=== PATIENT | female | born 1955 | race Caucasian/White ===

== ENCOUNTER 2016-09-25 10:31 | Emergency (ER) | payer BC ==
[2016-09-25] MEDS ORDERED: NS 1,000 ML IV ONE (10:58)
[2016-09-25 11:03] VITALS: TEMP 97
[2016-09-25] MEDS ORDERED: SUMAtriptan 6 MG/0.5 ML VIAL SC ONE (11:42)
[2016-09-25] MEDS ORDERED: KETOROLAC 30 MG/1 ML SDV IVP ONE (11:42)
--- NOTE | 2016-09-25 11:47 | UCPHY ---
H & P Patient Type: New Chief Complaint Nursing Narrative: migraine headache started 2am with n/v, unable to take po imitrex and hold down. Time Seen by Provider: 09/25/16 11:27 HPI/ROS: This patient reports onset of headache at 2:00 a.m.. She clarifies explains that she experience some neck pain that she feels musculoskeletal in origin related to mowing the lawn and swimming. She had on either of those activities several weeks and then both the day prior to the headache. She noticed a achy neck prior to going to sleep and then was awakened by this head pain that felt like his extending from the neck to the occiput. The pain is bilateral and achy in nature 8/10 intensity slightly worse with movement. She reports associated nausea and vomiting several episodes through the night. She is unable to tolerate her oral Imitrex due to the vomiting. She usually has relief of her headaches from Imitrex. She does feel that she has both musculoskeletal tension type headaches and migraines ROS: No fevers or chills. No recent head trauma. HEENT: No recent URI symptoms or sinus pain. Neuro: No numbness tingling focal weakness or vision changes. Musculoskeletal: No midline neck pain. No trauma. Pulmonary: No complaints 7 point ROS is otherwise negative. Source: Patient Exam Limitations: No limitations - Medical/Surgical History Other PMH: migraines, lumpectomy - Family History Significant Family History: No pertinent family hx - Social History Smoking Status: Never smoked Alcohol Use: Rarely Drug Use: None - Physical Exam Exam: Physical exam: Vital signs are normal General: Patient is in no acute distress. HEENT: Is no external evidence of trauma on exam. Eyes: Pupils are equal and reactive to light. Extraocular motions are intact. Optic fundi: Clear with no papilledema or hemorrhage. Nose atraumatic. Ears: Clear bilaterally with no hemotympanum. Oropharynx: No dental trauma or malocclusion. No intraoral lacerations. Eyes: Pupils are equal and reactive to light. Extraocular motions are intact. Optic fundi: Clear with no papilledema or hemorrhage.a is midline with no stridor. The patient has no midline neck tenderness and retains a full range of motion without increase in pain. Lungs: Clear to auscultation bilaterally Neck: Supple no meningismus. Cardiac: Regular rate and rhythm no murmur gallop or rub. Abdomen: Soft nontender no organomegaly Neuro: GCS of 15. Cranial nerves II through XII intact. Cerebellar exam is normal as judged by symmetric rapid hand movements bilaterally. No pronator drift. No sensory or motor deficits are appreciated. Initial differential diagnosis: Migraine, tension headache, [employer] lesion, intracranial bleed Constitutional: Initial Vital Signs Temperature (C) 36.1 C 09/25/16 10:45 Heart Rate 72 09/25/16 10:45 Respiratory Rate 18 09/25/16 10:45 Blood Pressure 118/71 09/25/16 10:45 O2 Sat (%) 99 09/25/16 10:45 O2 Delivery Mode Room Air Allergies/Adverse Reactions: Penicillins Allergy (Intermediate, Verified 09/25/16 11:00) Sulfa (Sulfonamide Antibiotics) Allergy (Intermediate, Verified 09/25/16 11:00) Home Medications: Medication Instructions Recorded Imitrex 04/17/09 Methocarbamol [Robaxin 750 mg (*)] 750 - 1,500 mg PO QID PRN #30 tab 09/25/16 Medical Decision Making ED Course/Re-evaluation: IV normal saline bolus Patient has had good luck with Imitrex and she requests this. I also treated with Toradol Patient had complete relief of her symptoms and on recheck at 12:30 p.m. feels 0 to 1/10 neck pain and no headache. We discussed musculoskeletal neck pain including stretches and mild muscle relaxant. She is going to follow up today with a headache specialist in [place]. Discussion: Findings most consistent with musculoskeletal neck pain and migraine headache improved with treatment. She understands the need to go the emergency department should she develop any red flag symptoms. - Data Points Medications Given: Discontinued Medications Sodium Chloride (Ns) 1,000 mls @ 0 mls/hr IV ONCE ONE PRN Reason: Wide Open Stop: 09/25/16 10:59 Last Admin: 09/25/16 11:10 Dose: 1,000 mls Ketorolac Tromethamine (Toradol) 30 mg IVP EDNOW ONE Stop: 09/25/16 11:43 Last Admin: 09/25/16 11:55 Dose: 30 mg Sumatriptan Succinate (Imitrex Sc Injection) 6 mg SC EDNOW ONE Stop: 09/25/16 11:43 Last Admin: 09/25/16 11:55 Dose: 6 mg Departure - Departure Disposition: Home, Routine, Self-Care Clinical Impression: Musculoskeletal neck pain Migraine Qualifiers: Migraine type: unspecified Status migrainosus presence: without status migrainosus Intractability: not intractable Qualified Code(s): G43.909 - Migraine, unspecified, not intractable, without status migrainosus Condition: Good Instructions: Migraine Headache (ED), Neck Pain (ED) Additional Instructions: Diagnoses: 1. Migraine 2. Musculoskeletal neck pain Plan: Gentle stretches of her neck Consider methocarbamol muscle relaxant and Tylenol for discomfort if needed Follow up with your headache specialist. Go to the emergency department for any significant worsening despite the treatment plan. Referrals: Lacy Riley MD [Primary Care Provider] - As per Instructions Prescriptions: Methocarbamol [Robaxin 750 mg (*)] 750 - 1,500 mg PO QID PRN #30 tab PRN Reason: Muscle Spasms - PQRS PQRS Measurement: NA
[2016-09-25 13:06] VITALS: BP 112/59; PULSE 62; RESP 16; O2SAT 97
== END 2016-09-25 12:55 | disposition home or self-care (01) ==
LOC: CED 10:31
DX: G43.909 Migraine, unspecified, not intractable, without status migrainosus (principal); M54.2 Cervicalgia
CPT/HCPCS: 96361-PO; 96374-PO; G0463-PO; J1885; J3030

== ENCOUNTER → 2016-12-29 | Outpatient (CLI) | payer BC | LOC: FIMAGING 08:19 | PROVIDERS: ATTEND Family Medicine | DX: M25.512 Pain in left shoulder (principal) ==

== ENCOUNTER 2017-01-05 09:08 | Emergency (ER) | payer BC ==
[2017-01-05 09:21] VITALS: BP 125/70; PULSE 61; RESP 18; TEMP 97.5; O2SAT 98
--- NOTE | 2017-01-05 09:36 | EDPHY ---
H & P Time Seen by Provider: 01/05/17 09:16 HPI/ROS: CHIEF COMPLAINT: Left calf burn History by patient HISTORY OF PRESENT ILLNESS: 61-year-old woman presents with burn to her left calf after backing into a chimney for [employer] 10 days ago. She has been treating the wound at home with Neosporin, aloe and honey. She is leaving tomorrow to go on vacation to [facility] for a week and wanted it checked out. She denies any fever chills. There has been no drainage or purulence. She denies any other pain or injury. Her tetanus status is up-to-date. REVIEW OF SYSTEMS: As in HPI, and all other systems reviewed and are negative Smoking Status: Never smoked Physical Exam: General Appearance: Alert and no distress. Eyes: Pupils equal and round no injection. Musculoskeletal: Neck is supple and nontender. Extremities: Left calf with 10 x 5 cm healing wound with no evidence of purulence or drainage and minimal surrounding erythema, no tenderness positive granulation tissue. Skin: No rashes or lesions except as described above. Constitutional: Initial Vital Signs Temperature (C) 36.4 C 01/05/17 09:18 Heart Rate 61 01/05/17 09:18 Respiratory Rate 18 01/05/17 09:18 Blood Pressure 125/70 H 01/05/17 09:18 O2 Sat (%) 98 01/05/17 09:18 O2 Delivery Mode Room Air Allergies/Adverse Reactions: Penicillins Allergy (Intermediate, Verified 01/05/17 09:17) Sulfa (Sulfonamide Antibiotics) Allergy (Intermediate, Verified 01/05/17 09:17) Home Medications: Medication Instructions Recorded Imitrex 04/17/09 NAPROXEN SODIUM 01/05/17 MDM/Departure - [facility] ED Course/Re-evaluation: 61-year-old woman presents with full to partial thickness burn on her left calf which is 10-day-old. There is no evidence of active infection. We discussed wound care and patient has been referred to surgery for follow-up. - Depart Clinical Impression: Burn of left lower leg Qualifiers: Encounter type: initial encounter Burn degree: partial thickness (2nd degree) Qualified Code(s): T24.232A - Burn of second degree of left lower leg, initial encounter Condition: Good Instructions: Second Degree Burn (ED) Additional Instructions: You were seen by Dr. Lis Cortez today. Continue to cover the wound with antibiotic ointment and keep it covered with a Band-Aid or gauze. Returns for signs or symptoms of infection including drainage , pus, increasing redness, leg swelling or increasing pain or fever. Please follow-up with your primary care physician or a surgeon, Dr. Sanchez, to have the wound re-evaluated when you return from vacation next week. Return for any worsening or new concerns. Referrals: Lacy Riley MD [Primary Care Provider] - As per Instructions Segun Sanchez MD [Medical Doctor] - As per Instructions
== END 2017-01-05 09:45 | disposition home or self-care (01) ==
LOC: CED 09:08
DX: T24.232A Burn of second degree of left lower leg, initial encounter (principal); X19.XXXA Contact with other heat and hot substances, initial encounter

== ENCOUNTER → 2017-01-19 | Outpatient (CLI) | payer BC | LOC: FIMAGING 07:07 | PROVIDERS: ATTEND Family Medicine | DX: M54.2 Cervicalgia (principal); M75.52 Bursitis of left shoulder; M65.812 Other synovitis and tenosynovitis, left shoulder; R93.8 Abnormal findings on diagnostic imaging of other specified body structures ==